=== PATIENT | male | born 1930 | race Caucasian/White ===

== ENCOUNTER → 2017-06-07 | Outpatient (REF) | LOC: ZLAB.WCH 08:35 | DX: Z01.89 Encounter for other specified special examinations (principal) ==

== ENCOUNTER 2018-04-22 10:47 | Inpatient (IN) | payer MEDICARE, BC ==
[~2018-04-22] VITALS: Ht 172.7 cm; Wt 91.5 kg
[2018-04-22] VITALS (10 sets, daily range): BP systolic 117–177; BP diastolic 45–72; PULSE 67–104; TEMP 97.2–98.8
[2018-04-22] MEDS ORDERED: PRINIVIL40 MG PO (11:32)
[2018-04-22] MEDS ORDERED: PLAVIX 75MG TAB75 MG PO (11:32)
[2018-04-22] MEDS ORDERED: ASPIRIN 81M81 MG/TA2 PO (11:33)
[2018-04-22] MEDS ORDERED: OMEGA-3 1000 MG1 CAP PO (11:34)
[2018-04-22] MEDS ORDERED: PROTONIX20 MG PO (11:34)
[2018-04-22] MEDS ORDERED: PROSCAR 5MG5 MG PO (11:35)
[2018-04-22] MEDS ORDERED: LIPITOR 40MG TA40 MG PO (11:35)
[2018-04-22] MEDS ORDERED: SINGULAIR 110 MG/TAB PO (11:35)
[2018-04-22] MEDS ORDERED: HYTRIN10 M1 PO (11:35)
[2018-04-22] MEDS ORDERED: PLENDIL 2.5MG2.5 MG PO (11:36)
[2018-04-22] MEDS ORDERED: NORCO2.5 PO (11:36)
[2018-04-22] MEDS ORDERED: CLARITIN 1010 MG/TAB PO (11:36)
[2018-04-22] MEDS ORDERED: FLONASE NASAL S16 GM NS (11:37)
[2018-04-22] MEDS ORDERED: FLEXERIL 1010 MG/TAB PO (11:37)
[2018-04-22] MEDS ORDERED: PROAIR HFA0.09 MG/AC IH (11:37)
[2018-04-22] MEDS ORDERED: NITROSTAT0.4 MG/TAB SL (11:38)
--- NOTE | 2018-04-22 19:21 | NUR ---
Pt resting. Family at bedside. No distress noted. Lungs clear to auscultation. Spo2 93% on O2 at 3.5 L via NC. Pt states pain is "not bad".BS positive. SCDs bilaterally. Indwelling catheter in place with clear, reddish output. Will continue to monitor.
--- NOTE | 2018-04-22 19:38 | NUR ---
Patient resting in bed. Family at bedside. Vss on O2. Bp more stable. Lee to DD with red tinged urine output. Scds ble. Patient had dinner and did well, denies nausea. He reports pain manged at this time. Report to Meka Zavala
--- NOTE | 2018-04-22 21:50 | NUR ---
Pt called and stated he "needed to move". Pt denies pain, but reports needing to pee. Catheter is free of kinks. Helped to sit up at the side of the bed. Will continue to monitor.
--- NOTE | 2018-04-22 22:15 | NUR ---
Pt back to bed. Pt continues to report sensation of needing to void. Bladder scan showed 0mL in bladder. Catheter drainage bag emptied to closer assess UO.
--- NOTE | 2018-04-22 23:55 | NUR ---
Pt has had no urinary output since empyting the drainage bag. Dr Michelle contacted. Orders received to discontinue catheter and allow patient time to void. If patient has not voided within a few hours, Dr. Michelle said to reinsert a 20 Fr Coude catheter.
--- NOTE | 2018-04-23 00:08 | NUR ---
Bladder scanner obtained from Emergency Department. Bladder scan showed 371 mL in bladder. Catheter discontinued per MD order. Well tolerated by patient.
--- NOTE | 2018-04-23 00:20 | NUR ---
Pt attempted to stand up and void, but was only able to have 10 mL dark red output.
--- NOTE | 2018-04-23 01:10 | NUR ---
Pt up to attempt to void again. Only 10 mL voided.
--- NOTE | 2018-04-23 02:15 | NUR ---
Pt up to try to void again. No output this time. Will bladder scan and reassess.
--- NOTE | 2018-04-23 02:30 | NUR ---
Bladder scan showed 423 mL in bladder. Pt in significant discomfort. PRN pain medication administered. 20 Fr Coude catheter inserted utilizing sterile techinque by Paulo FLOREZ. Immediate ouput of 350 mL of dark red output noted. Will continue to monitor.
[2018-04-23 03:35] VITALS: BP 138/52; PULSE 94; TEMP 98.3
--- NOTE | 2018-04-23 06:18 | NUR ---
Pt resting this AM. Daughter at bedside. Denies pain at this time. Pt reports feeling much better after catheter reinsertion. Catheter drainage dark red urine. Catheter not discontinued this AM due to void after discontinuation last night. Will pass along to dayshift.
--- NOTE | 2018-04-23 07:00 | NUR ---
Reporterd on to VIKKI Mabry. Pt resting with eyes closed. Snoring respirations.
--- NOTE | 2018-04-23 08:53 | NUR ---
Expiratory wheezes and rhonchi bilateral upper and middle wilkerson. Oxygen at 4L via NC. Cough productive. 40 mL serous urine in cylinder. Lee CDI attached to right thigh. No SCDs/TEDs in place. INT in right AC CDI.
--- NOTE | 2018-04-23 09:45 | NUR ---
Pt moved to chair. Pt tolerated well with one assist.
[2018-04-23 09:49] VITALS: BP 134/53; PULSE 91; TEMP 98.8
--- NOTE | 2018-04-23 09:56 | NUR ---
Patient assisted to sit up in the chair. He has very flat affect, minamilly conversive. He did okay with activity, dyspnea with exertion. Patient at 85% on room air, placed back onto 2l o2. He is not impressed with breakfast, but tolerated without nausea. Hudson to DD, red tinged output with sedimant noted. rounded, patient frustrated about having to take hudson home. He has supportive daughters at bedside. Puneet baker.
--- NOTE | 2018-04-23 10:17 | NUR ---
SW met with patient and family about discharge plans. Nurse reports patient will likley discharge today. Patient lives alone but family memebers stay with him every night. Patient's PCP is Dr Kaur and he obtains prescriptions from [facility]. Patient does not use any DME or home health services. Patient reports he has a DPOA but it is not in EMR. SW does not anticipate any discharge needs.
--- NOTE | 2018-04-23 11:00 | NUR ---
Catheter care provied. Catheter attached to right thigh. Medication ointment applied. Pea sized amount of purulent drainage from urethra.
[2018-04-23 11:22] VITALS: BP 122/49; PULSE 100; TEMP 97.4
--- NOTE | 2018-04-23 11:36 | NUR ---
Reported off to VIKKI Mabry.
--- NOTE | 2018-04-23 11:39 | NUR ---
Reported on to VIKKI Mabry. Pt resting with eyes closed. Snoring respirations.
--- NOTE | 2018-04-23 13:33 | NUR ---
Patient assisted back to bed. He continues to require O2. His family is concerned about him. Patient continues to have very flat affect. Slightly tachy. Lee to DD urine flows, becoming more clear & less red. He refused lunch minimal appetite.
[2018-04-23 13:54] VITALS: BP 142/59; PULSE 100; TEMP 100.1
--- NOTE | 2018-04-23 13:59 | NUR ---
Second voicemail left with Dr. Hidalgo. Patient continues to need O2. He was a little more awake and verbal this interaction with patient. His daughter at bedside. Will await a return call.
[2018-04-23 15:27] VITALS: BP 124/54; PULSE 105; TEMP 99.1
[2018-04-23 16:22] LABS: BASO # 0.1 (0.0-0.2); BASO % 0.4 % (0.0-2.0); GRAN # 19.2 (1.4-6.5); GRAN % 82.3 % (42.2-75.2); HEMOGLOBIN 11.6 g/dl (13.5-18.0); LYMPH # 2.5 (1.2-3.4); LYMPH % 10.7 % (20.0-51.0); MEAN CELL VOLUME 90 fl (80.0-100.0); MEAN CORPUSCULAR HEMOGLOBIN 29 pg (27.0-31.0); MEAN CORPUSCULAR HGB CONC 32 g/dl (33.0-37.0); MEAN PLATELET VOLUME 10.8 fl (7.4-10.4); MONO # 1.4 (0.1-0.6); MONO % 5.9 % (1.7-9.3); PLATELET COUNT 177 K/mm3 (130-400); RED BLOOD COUNT 4.02 M/mm3 (4.20-5.60); REDCELL DISTRIBUTION WIDTH-CV 15.7 % (11.5-14.5)
[2018-04-23 16:23] LABS: HEMATOCRIT 36.1 % (42.0-52.0)
[2018-04-23 16:47] LABS: ALBUMIN 3.3 gm/dL (3.5-5.0); BILIRUBIN,TOTAL 0.6 mg/dL (0.0-1.0); CALCIUM 8.6 mg/dL (8.4-10.2); CREATININE, serum 1.66 mg/dL (0.66-1.25); POTASSIUM 4.6 mmol/L (3.4-5.0); TOTAL PROTEIN 6.1 gm/dL (6.4-8.2)
--- NOTE | 2018-04-23 19:06 | NUR ---
Hospitalist consult obtained from . The hospitalist rounded & Multiple orders obtained & completed. Did notify hospitalist with critical WBC. Also notified Toya this evening of elevated BNP results, IVF slowed per orders & a few more orders obtained. was called & updated on patient status. Patient overall in better spirits this evening. His family very attentive & involved at bedside. Plan of care reviewed. Ivf & antibioitcs as orders. He is tolerating diet. Hudson to DD, urine output tea colored with sediment. Tylenol managed his hudson discomfort pain, I did irrigate hudson x1 today, no clot obtained. Scds ble.
[2018-04-23 20:49] VITALS: BP 131/50; PULSE 96; TEMP 98.4
--- NOTE | 2018-04-23 21:10 | NUR ---
Pt in bed resting, no C/O pain, shift assessment complete, left Pt call light in reach, bed in lowest position.
[2018-04-24 00:45] VITALS: BP 127/47; PULSE 98; TEMP 99
[2018-04-24 04:30] VITALS: BP 131/48; PULSE 102; TEMP 98.3
--- NOTE | 2018-04-25 07:59 | NUR ---
PT IS ASLEEP AFTER A ROUGH NIGHT PER FAMILY. FAMILY REQUEST TO LEAVE PT ASLEEP AT THIS TIME.
[2018-04-25 08:00] VITALS: BP 141/66; PULSE 120; TEMP 98.3
[2018-04-25 12:00] VITALS: BP 152/74; PULSE 111; TEMP 99.1
--- NOTE | 2018-04-25 14:45 | NUR ---
HERBIE met with patient's family after clinical rounds. SW informed family that post acute rehab has been recommended. Patient's family reports they would prefer family to go [facility] and they do not have a second choice at this time. HERBIE contacted Susana from [place] about referral. HERBIE will continue to follow.
[2018-04-25 15:00] LABS: HEMOGLOBIN 10.9 g/dl (13.5-18.0); MEAN CELL VOLUME 89 fl (80.0-100.0); MEAN CORPUSCULAR HEMOGLOBIN 29 pg (27.0-31.0); MEAN CORPUSCULAR HGB CONC 32 g/dl (33.0-37.0); MEAN PLATELET VOLUME 11.1 fl (7.4-10.4); PLATELET COUNT 167 K/mm3 (130-400); RED BLOOD COUNT 3.83 M/mm3 (4.20-5.60); REDCELL DISTRIBUTION WIDTH-CV 15.9 % (11.5-14.5)
[2018-04-25 15:38] LABS: CALCIUM 8.6 mg/dL (8.4-10.2); CREATININE, serum 1.72 mg/dL (0.66-1.25); POTASSIUM 4.2 mmol/L (3.4-5.0)
[2018-04-25 16:17] LABS: BASO # 0.1 (0.0-0.2); BASO % 0.3 % (0.0-2.0); EOS # 0.1 (0.0-0.7); EOS % 0.4 % (0-4.0); GRAN # 12.7 (1.4-6.5); GRAN % 76.5 % (42.2-75.2); HEMATOCRIT 34.4 % (42.0-52.0); HEMOGLOBIN 11.1 g/dl (13.5-18.0); LYMPH # 2.1 (1.2-3.4); LYMPH % 12.5 % (20.0-51.0); MEAN CELL VOLUME 89 fl (80.0-100.0); MEAN CORPUSCULAR HEMOGLOBIN 29 pg (27.0-31.0); MEAN CORPUSCULAR HGB CONC 32 g/dl (33.0-37.0); MONO # 1.6 (0.1-0.6); MONO % 9.8 % (1.7-9.3); PLATELET COUNT 156 K/mm3 (130-400); RED BLOOD COUNT 3.85 M/mm3 (4.20-5.60)
[2018-04-25 16:40] VITALS: BP 117/66; PULSE 105; TEMP 98.4
[2018-04-25 17:01] LABS: CALCIUM 8.9 mg/dL (8.4-10.2); CREATININE, serum 1.71 mg/dL (0.66-1.25); POTASSIUM 4.4 mmol/L (3.4-5.0)
--- NOTE | 2018-04-25 18:55 | NUR ---
Patient doing much better this evening. He is alert & oriented. Sitting up in the chair. Family has been attentive at bedside. Dr. Hidalgo rounded this am & hudson was Discontinued per orders & patient has voided without difficulty. He has also had a BM today. Hospitalist team rounded this am. Orders were obtained. verifed subq heparin with Dr. Griffin & it was started per orders for DVT prevention. Patient at VQ scan today-negative for PE. Patient has not requried any pain medication today. He worked with therapy & ambulated in the halls with the walker. Public Relations Studies Director assisted with hygiene. Bedside report to Paulo FLOREZ.
--- NOTE | 2018-04-25 19:34 | NUR ---
pt states he is not a fan of that tx but he will try it again.
--- NOTE | 2018-04-25 20:45 | NUR ---
Pt. laying in bed with family at bedside. Pt. is A&OX3, assessment complete. INT to rt. forearm patent. Pt. denies pain or other needs at this time. Call light within reach.
[2018-04-26] VITALS (7 sets, daily range): BP systolic 126–165; BP diastolic 56–77; PULSE 103–116; TEMP 97.5–99.2
[2018-04-26 07:39] LABS: HEMOGLOBIN 10.3 g/dl (13.5-18.0); MEAN CELL VOLUME 90 fl (80.0-100.0); MEAN CORPUSCULAR HEMOGLOBIN 29 pg (27.0-31.0); MEAN CORPUSCULAR HGB CONC 32 g/dl (33.0-37.0); MEAN PLATELET VOLUME 11.5 fl (7.4-10.4); PLATELET COUNT 167 K/mm3 (130-400); RED BLOOD COUNT 3.61 M/mm3 (4.20-5.60); REDCELL DISTRIBUTION WIDTH-CV 15.9 % (11.5-14.5)
[2018-04-26 07:41] LABS: HEMATOCRIT 32.6 % (42.0-52.0)
[2018-04-26 07:46] LABS: ALBUMIN 3.2 gm/dL (3.5-5.0); BILIRUBIN,TOTAL 0.8 mg/dL (0.0-1.0); CREATININE, serum 1.8 mg/dL (0.66-1.25); POTASSIUM 4.4 mmol/L (3.4-5.0); TOTAL PROTEIN 6.2 gm/dL (6.4-8.2)
--- NOTE | 2018-04-26 08:00 | NUR ---
Patient in bed resting. Family at bedside. Alert and oriented x 3. Shift assesment complete. INT to right forarm patent. Expiratory wheezing noted as well as diminished bases. Edema to BLE noted +1 pitting. Denies pain or further needs at this time.
[2018-04-26 08:20] LABS: BAND 4 % (0-10); EOSINOPHIL 1 % (0-4); LYMPHOCYTE 11 % (20.0-51.0); NEUTROPHILS 68 % (42.0-75.2); PLATELET ESTIMATE NORMAL (NORMAL)
--- NOTE | 2018-04-26 17:53 | NUR ---
Patient has rested on and off through the day. Minimal needs. Has been up several times to restroom, stand by assist with steady gait. Family in room through the day. Continues to deny pain. Has been up to chair through the day. Denies further needs at this time. Will report off to event promotions coordinator.
--- NOTE | 2018-04-26 18:24 | NUR ---
METANEB COULD NOT BE DONE WITH EITHER SCHEDULED SVN TODAY. PT HAS BEEN LETHARGIC EACH TIME. PT DID DO ACAPELLA WITH A FAIR EFFORT BUT WOULD FALL BACK TO SLEEP. IT WILL BE ATTEMPTED AGAIN. PT IS TOLERATING 3LNC AT THIS TIME STILL. EXPIRATORY WHEEZES NOTED IN UPPER LOBES WELL TRACHEAL (WHICH ARE AUDIBLE).
--- NOTE | 2018-04-26 23:10 | NUR ---
PT AMBULATING IN ROOM TO TOILET. PT REPORTS HE'S HAVING NO TROUBLE URINATING. NO N/V. PT'S RT UPPER LUNG FIELD SOUNDED COARSE, OTHERWISE LUNGS SOUNDS WERE DIMINISHED. NO DYSPNEA AT REST.
[2018-04-27 03:51] VITALS: BP 123/57; PULSE 98
--- NOTE | 2018-04-27 06:45 | NUR ---
PT HAS BECOME INCREASISNGLY, AUDIBLY CONGESTED THE NIGHT PROGRESSED. PT WAS OFFERED A PRN NEBULIZER TREATMENT THIS MORNING BUT HE REFUSED. PT HAS AN OCCASIONAL LOOSE COUGH. PT SEEN BY RT
[2018-04-27 07:43] LABS: BASO # 0.1 (0.0-0.2); BASO % 0.8 % (0.0-2.0); EOS # 0.1 (0.0-0.7); EOS % 0.9 % (0-4.0); GRAN # 6.2 (1.4-6.5); GRAN % 60.2 % (42.2-75.2); LYMPH # 2.5 (1.2-3.4); LYMPH % 24.3 % (20.0-51.0); MEAN CELL VOLUME 91 fl (80.0-100.0); MEAN CORPUSCULAR HGB CONC 31 g/dl (33.0-37.0); MEAN PLATELET VOLUME 11.2 fl (7.4-10.4); MONO # 1.4 (0.1-0.6); MONO % 13.4 % (1.7-9.3); PLATELET COUNT 172 K/mm3 (130-400); RED BLOOD COUNT 3.31 M/mm3 (4.20-5.60); REDCELL DISTRIBUTION WIDTH-CV 16.1 % (11.5-14.5)
[2018-04-27 07:45] VITALS: BP 132/68; PULSE 92; TEMP 98.7
[2018-04-27 07:51] LABS: HEMOGLOBIN 9.4 g/dl (13.5-18.0); MEAN CORPUSCULAR HEMOGLOBIN 28 pg (27.0-31.0)
[2018-04-27 07:52] LABS: CALCIUM 8.8 mg/dL (8.4-10.2); CREATININE, serum 1.94 mg/dL (0.66-1.25); POTASSIUM 4.4 mmol/L (3.4-5.0)
[2018-04-27 11:08] VITALS: BP 126/57; PULSE 94; TEMP 98.4
[2018-04-27 16:00] VITALS: BP 148/74; PULSE 98; TEMP 99.1
--- NOTE | 2018-04-27 18:00 | NUR ---
Alert. O2 on at 4L/ nasal cannula. Chest x-ray done. Mild shortness of breath with activity. Productive cough at times. Ambulates well with standby assist. Informed of medication changes. Family here during shift.
[2018-04-27 19:50] VITALS: BP 152/72; PULSE 99; TEMP 98.4
--- NOTE | 2018-04-27 20:10 | NUR ---
PT DIDNT WANT TO DO THE METABNEB
--- NOTE | 2018-04-27 22:22 | NUR ---
PT IN BED. NO N/V. FAMILY IN ROOM. RIGHT LUNG FIELD COARSE. PT'S BREATHING SOMEWHAT LABORED.
[2018-04-28 00:12] VITALS: BP 154/89; PULSE 99; TEMP 97.5
[2018-04-28 04:10] VITALS: BP 180/95; PULSE 96; TEMP 97.4
[2018-04-28 04:50] VITALS: BP 174/84
--- NOTE | 2018-04-28 05:09 | NUR ---
LUNGS SOUND SLIGHTLY BETTER THIS MORNING. PT DID GET SOME SLEEP DURING THE NIGHT. BLOOD PRESSURE WAS ELEVATED THIS MORNING. PT HAS OFTEN CHOKED AFTER TAKING A DRINK OF WATER DURING THE NIGHT.
[2018-04-28 06:10] LABS: BASO % 0.2 % (0.0-2.0); GRAN # 4.8 (1.4-6.5); GRAN % 75.1 % (42.2-75.2); HEMOGLOBIN 10.1 g/dl (13.5-18.0); LYMPH # 1.2 (1.2-3.4); LYMPH % 18.8 % (20.0-51.0); MEAN CELL VOLUME 91 fl (80.0-100.0); MEAN CORPUSCULAR HEMOGLOBIN 28 pg (27.0-31.0); MEAN CORPUSCULAR HGB CONC 31 g/dl (33.0-37.0); MEAN PLATELET VOLUME 11.6 fl (7.4-10.4); MONO # 0.3 (0.1-0.6); MONO % 5.4 % (1.7-9.3); PLATELET COUNT 183 K/mm3 (130-400); RED BLOOD COUNT 3.56 M/mm3 (4.20-5.60); REDCELL DISTRIBUTION WIDTH-CV 15.9 % (11.5-14.5)
[2018-04-28 06:13] LABS: HEMATOCRIT 32.3 % (42.0-52.0)
[2018-04-28 06:30] LABS: CALCIUM 8.9 mg/dL (8.4-10.2); CREATININE, serum 1.99 mg/dL (0.66-1.25); POTASSIUM 4.9 mmol/L (3.4-5.0)
[2018-04-28 08:19] VITALS: BP 171/84; PULSE 96; TEMP 97.9
--- NOTE | 2018-04-28 08:34 | NUR ---
Patient concerned this am about voiding, he was up the the bathroom at shift change and reported not being able to void. Bladder was scanned 402ml scanned. Patient was just up to the bathroom again & was unable to use the urinal for accurate I&O, but he did sit at the toliet and void. Rescanned bladder & 0ml found. Patient sitting up eating braekfast. Son in law at bedside. Patient does not report pain. He does have dyspnea with exertion & breathing labored. He continues to require O2. Puneet baker
[2018-04-28] MEDS ORDERED: IPRATROPIUM BROM3 M1 IH ×2 (11:17)
[2018-04-28] MEDS ORDERED: AMOXICILLIN/CLA1 TA1 PO (11:17)
[2018-04-28] MEDS ORDERED: MIRALAX119G PO (11:17)
[2018-04-28] MEDS ORDERED: MELATONIN3 MG PO (11:17)
[2018-04-28] MEDS ORDERED: NORVASC 5MG5 MG/TAB PO (11:18)
[2018-04-28] MEDS ORDERED: PREDNISONE20 MG PO (11:20)
--- NOTE | 2018-04-28 11:33 | NUR ---
HERBIE attended clinical rounds. Patient will discharge today to [facility] this afternoon. SW will fax discharge orders once they're completed. HERBIE presented IM to patient. He signed but did not request a copy.
--- NOTE | 2018-04-28 12:31 | NUR ---
First visit from the silver lap machine tender. No needs right now.
[2018-04-28 12:35] VITALS: BP 153/77; PULSE 92; TEMP 97.9
--- NOTE | 2018-04-28 15:15 | NUR ---
Patient ready for discharge. Hospitalit team had rounded & orders obtained. Echo completed. Rt completed treatment. Report called to [place] nurse after doc to doc complete. Patient showered with COMPUTER GAME TESTER assist. Int DC. Patient wheeled out with all belongings & O2 tank. His son taking him to [place].
== END 2018-04-28 15:20 | disposition swing bed (61) | DRG 853 ==
LOC: SDCO 10:47 → SURG 18:05 → SDCO 04-23 16:36 → SURG 04-23 16:37
PROVIDERS: Hospitalist; Physician Assistant; ADMIT Urology
PROC: 0V508ZZ Destruction of Prostate, Via Natural or Artificial Opening Endoscopic (ICD-10-PCS; principal; 2018-04-22 15:30)
DX: A41.9 Sepsis, unspecified organism (principal); J96.01 Acute respiratory failure with hypoxia; J69.0 Pneumonitis due to inhalation of food and vomit; N13.8 Other obstructive and reflux uropathy; G93.40 Encephalopathy, unspecified; N17.9 Acute kidney failure, unspecified; F05 Delirium due to known physiological condition; K56.7 Ileus, unspecified; N40.1 Benign prostatic hyperplasia with lower urinary tract symptoms; R35.1 Nocturia; E11.22 Type 2 diabetes mellitus with diabetic chronic kidney disease; I12.9 Hypertensive chronic kidney disease with stage 1 through stage 4 chronic kidney disease, or unspecified chronic kidney disease; N18.9 Chronic kidney disease, unspecified; I25.10 Atherosclerotic heart disease of native coronary artery without angina pectoris; E78.5 Hyperlipidemia, unspecified; I73.9 Peripheral vascular disease, unspecified; Z95.1 Presence of aortocoronary bypass graft; Z87.891 Personal history of nicotine dependence
CPT/HCPCS: OP; 99222-AI; 99232-AI; 99239; A9284; A9540; A9567; J0360; J0690; J1170; J1630; J1644; J2270; J2405; J2543; J2704; J2920; J3010; J3370; J7030; J7040; J7050; J7120; J7512

== ENCOUNTER → 2018-06-06 | Outpatient (REF) ==
[~2018-06-06] MED LIST: AMOXICILLIN/CLA1 TA1 PO; ASPIRIN 81M81 MG/TA2 PO; CLARITIN 1010 MG/TAB PO; FLEXERIL 1010 MG/TAB PO; FLONASE NASAL S16 GM NS; HYTRIN10 M1 PO; IPRATROPIUM BROM3 M1 IH; LIPITOR 40MG TA40 MG PO; MELATONIN3 MG PO; MIRALAX119G PO; NITROSTAT0.4 MG/TAB SL; NORCO2.5 PO; NORVASC 5MG5 MG/TAB PO; OMEGA-3 1000 MG1 CAP PO; PLAVIX 75MG TAB75 MG PO; PLENDIL 2.5MG2.5 MG PO; PREDNISONE20 MG PO; PRINIVIL40 MG PO; PROAIR HFA0.09 MG/AC IH; PROSCAR 5MG5 MG PO; PROTONIX20 MG PO; SINGULAIR 110 MG/TAB PO
[2018-06-06 18:40] LABS: PSA-TOTAL 0.44 ng/mL (0-4)
[2018-06-06 19:20] LABS: THYROID STIMULATING HORMONE 1.75 uIU/mL (0.465-4.680)
== END ==
LOC: ZLAB.WCH 17:35
PROVIDERS: Internal Medicine
DX: Z01.89 Encounter for other specified special examinations (principal)
CPT/HCPCS: G0103

== ENCOUNTER → 2018-06-10 | Outpatient (CLI) | payer MEDICARE, BC | LOC: COL.VAS 10:03 | DX: I70.211 Atherosclerosis of native arteries of extremities with intermittent claudication, right leg (principal); R09.89 Other specified symptoms and signs involving the circulatory and respiratory systems ==

== ENCOUNTER → 2018-08-05 | Outpatient (CLI) | payer MEDICARE, BC | LOC: COL.VAS 09:45 | DX: I35.8 Other nonrheumatic aortic valve disorders (principal); I70.1 Atherosclerosis of renal artery; I65.23 Occlusion and stenosis of bilateral carotid arteries; I25.10 Atherosclerotic heart disease of native coronary artery without angina pectoris; I42.9 Cardiomyopathy, unspecified; I11.0 Hypertensive heart disease with heart failure; I50.20 Unspecified systolic (congestive) heart failure; I73.9 Peripheral vascular disease, unspecified; Z95.828 Presence of other vascular implants and grafts ==